=== PATIENT | female | born 1950 | race Caucasian/White ===

== ENCOUNTER 2017-04-07 00:39 | Inpatient (IN) | payer MEDICAID, MEDICARE, OTHER ==
[2017-04-07] VITALS (7 sets, daily range): BP systolic 122–160
[~2017-04-07] VITALS: Ht 152.4 cm; Wt 59.0 kg
[2017-04-07] MEDS ORDERED: methylPREDNISolone SOD SUCC/PF 62.5 MG/ML VIAL IVP ONE (01:00)
[2017-04-07] MEDS ORDERED: IPRATROPIUM/ALBUTEROL SULFATE 3 ML AMPUL.NEB INH ONE ×2 (01:00→02:45)
[2017-04-07] MEDS ORDERED: NACL 0.9% 1,000 ML IV ONE (01:00)
[2017-04-07] MEDS ORDERED: MAGNESIUM SULFATE 50 ML IV ONE (01:00)
[2017-04-07 02:14] LABS: BILIRUBIN,URINE NEGATIVE (NEGATIVE); BLOOD, URINE NEGATIVE (NEGATIVE); CLARITY/URINE CLEAR (CLEAR); COLOR,URINE YELLOW (YELLOW); GLUCOSE,URINE NEGATIVE (NEGATIVE); KETONES,URINE NEGATIVE (NEGATIVE); LEUKOCYTE ESTERASE ,URINE NEGATIVE (NEGATIVE); NITRITE, URINE NEGATIVE (NEGATIVE); PH,URINE 5.5 (5.0-8.0); PROTEIN URINE NEGATIVE (NEGATIVE); UROBILINOGEN,URINE 0.2 (0.2-1.0)
[2017-04-07 02:21] LABS: BASOPHILS # (AUTO) 0.1 K/uL (0.0-0.2); BASOPHILS % (AUTO) 0.8 % (0.0-2.0); EOSINOPHILS # (AUTO) 0.3 K/uL (0.0-0.4); HEMATOCRIT 33.8 % (36-48); HEMOGLOBIN 11.1 g/dL (12.0-16.0); LYMPHOCYTES # (AUTO) 2.6 K/uL (1.0-5.5); LYMPHOCYTES % (AUTO) 24.6 % (20.5-51.5); MEAN CORPUSCULAR HEMOGLOBIN 29 pg (27-31); MEAN CORPUSCULAR HGB CONC 33 % (32-36); MEAN CORPUSCULAR VOLUME 88 fL (79.0-98.0); NEUTROPHILS # (AUTO) 6.6 K/uL (1.8-7.7); NEUTROPHILS % (AUTO) 62.6 % (40.0-70.0); PLATELET COUNT (AUTO) 184 K/uL (130-430); RED BLOOD CELL COUNT(AUTO) 3.86 MIL/uL (4.2-6.2); RED CELL DISTRIBUTION WIDTH 14.8 % (9.0-15.0); WHITE BLOOD COUNT (AUTO) 10.6 K/uL (4.8-10.8)
[2017-04-07 02:24] LABS: CALCIUM 8.8 mg/dL (8.4-11.0); CREATININE 0.99 mg/dL (0.55-1.30); POTASSIUM 3.8 mmol/L (3.5-5.1)
[2017-04-07 02:29] LABS: ALBUMIN 3.4 g/dL (3.4-4.8); PROTHROMBIN TIME 10.5 SECS (9.5-12.5); TOTAL BILIRUBIN 0.3 mg/dL (0.0-1.0); TOTAL PROTEIN, SERUM 7.2 g/dL (6.4-8.3)
[2017-04-07] MEDS: IPRATROPIUM/ALBUTEROL SULFATE 3 ML AMPUL.NEB INH SCH ×6 (03:00→23:15)
[2017-04-07] MEDS ORDERED: cefTRIAXone 1 GM IVPB PREMIX 50 ML IV ONE (04:57)
[2017-04-07] MEDS: CEFTRIAXONE SOD 1 GM/ DEXTROSE,ISO 50 ML PREMIX IV SCH (05:46)
[2017-04-07] MEDS ORDERED: methylPREDNISolone SOD SUCC 40 MG/ML VIAL IVP SCH (06:00)
[2017-04-07] MEDS ORDERED: cefTRIAXone 1 GM VIAL IV SCH (09:00)
[2017-04-07] MEDS ORDERED: cefTRIAXone 1 GM VIAL IM SCH (09:00)
[2017-04-07] MEDS ORDERED: VITD2000 PO (12:22)
[2017-04-07] MEDS ORDERED: FURO-150 PO (12:22)
[2017-04-07] MEDS ORDERED: SPIRIVA INH (12:22)
[2017-04-07] MEDS ORDERED: ALBU0.63 NEB (12:22)
[2017-04-07] MEDS ORDERED: METO-442 PO (12:22)
[2017-04-07] MEDS ORDERED: TYC3 PO (12:22)
[2017-04-07] MEDS ORDERED: LORA-843 PO (12:22)
[2017-04-07] MEDS ORDERED: PRED20TA PO (12:22)
[2017-04-07] MEDS ORDERED: VITA1CAP PO (12:22)
[2017-04-07] MEDS ORDERED: SIMV20TA6 PO (12:22)
[2017-04-07] MEDS ORDERED: LIP10 PO (12:22)
[2017-04-07] MEDS ORDERED: ROFL500T PO (12:22)
[2017-04-07] MEDS ORDERED: METH4TAB17 PO (12:22)
[2017-04-07] MEDS ORDERED: MELO15TA13 PO (12:22)
[2017-04-07] MEDS ORDERED: MULT-1117 (12:22)
[2017-04-07] MEDS ORDERED: FLUT12AE3 IH (12:22)
[2017-04-07] MEDS ORDERED: CIPR-211 PO (12:22)
[2017-04-07] MEDS ORDERED: OXYB10TA4 PO (12:22)
[2017-04-07] MEDS ORDERED: CHOL500037 PO (12:22)
[2017-04-07] MEDS ORDERED: LOSA100T11 PO (12:22)
[2017-04-07] MEDS ORDERED: IRON1TAB93 PO (12:22)
[2017-04-07] MEDS ORDERED: LORA-259 PO (12:22)
[2017-04-07] MEDS ORDERED: ACETAMINOPHEN/CODEINE 300 MG-30 MG TABLET PO PRN (14:00)
[2017-04-07] MEDS ORDERED: MELOXICAM 7.5 MG TABLET PO PRN (14:00)
[2017-04-07] MEDS: methylPREDNISolone SOD SUCC 40 MG/ML VIAL IVP SCH ×2 (16:53→21:52)
[2017-04-07] MEDS: OXYBUTYNIN CHLORIDE 5 MG TABLET PO SCH (21:51)
[2017-04-08] MEDS: IPRATROPIUM/ALBUTEROL SULFATE 3 ML AMPUL.NEB INH SCH ×6 (02:20→23:30)
[2017-04-08 04:00] VITALS: BP_SYST 140
[2017-04-08] MEDS: CEFTRIAXONE SOD 1 GM/ DEXTROSE,ISO 50 ML PREMIX IV SCH (05:19)
[2017-04-08] MEDS: methylPREDNISolone SOD SUCC 40 MG/ML VIAL IVP SCH ×3 (05:19→21:11)
[2017-04-08] MEDS: IPRATROPIUM BROM 0.5 MG/2.5 ML VIAL.NEB (ATROVENT) INH SCH ×2 (07:00→11:00)
[2017-04-08 08:10] VITALS: BP_SYST 142
[2017-04-08] MEDS: METOPROLOL TARTRATE 50 MG TABLET PO SCH (08:24)
[2017-04-08] MEDS: CHOLECALCIFEROL (VITAMIN D3) 2,000 UNIT TABLET PO SCH (08:24)
[2017-04-08] MEDS: ATORVASTATIN 10 MG TABLET PO SCH (08:24)
[2017-04-08] MEDS: OXYBUTYNIN CHLORIDE 5 MG TABLET PO SCH ×2 (08:24→21:11)
[2017-04-08] MEDS: LOSARTAN POTASSIUM 50 MG TABLET (COZAAR) PO SCH (08:25)
[2017-04-08] MEDS: VITAMIN B COMPLEX 1 CAP/TAB PO SCH (08:40)
[2017-04-08] MEDS ORDERED: TIOTROPIUM BROMIDE 18 mcg/INHALATION (CAPSULE) INH SCH (09:00)
[2017-04-08] MEDS ORDERED: OXYBUTYNIN CHLORIDE 5 MG XL TAB PO SCH (09:00)
[2017-04-08 12:00] VITALS: BP_SYST 147
[2017-04-08] MEDS: IPRATROPIUM/ALBUTEROL SULFATE 3 ML AMPUL.NEB INH PRN ×2 (13:13→17:13)
[2017-04-08] MEDS ORDERED: ENOXAPARIN SODIUM 40 MG/0.4 ML SYRINGE SUBCUT ONE (14:00)
[2017-04-08 16:13] VITALS: BP_SYST 140
[2017-04-08 20:30] VITALS: BP_SYST 130
[2017-04-09] VITALS: BP_SYST 148
[2017-04-09] MEDS: IPRATROPIUM/ALBUTEROL SULFATE 3 ML AMPUL.NEB INH SCH ×6 (03:00→23:20)
[2017-04-09 04:54] VITALS: BP_SYST 157
[2017-04-09] MEDS: CEFTRIAXONE SOD 1 GM/ DEXTROSE,ISO 50 ML PREMIX IV SCH (05:26)
[2017-04-09] MEDS: methylPREDNISolone SOD SUCC 40 MG/ML VIAL IVP SCH ×3 (05:26→21:32)
[2017-04-09 08:04] VITALS: BP_SYST 149
[2017-04-09] MEDS: ATORVASTATIN 10 MG TABLET PO SCH (08:29)
[2017-04-09] MEDS: CHOLECALCIFEROL (VITAMIN D3) 2,000 UNIT TABLET PO SCH (08:29)
[2017-04-09] MEDS: ENOXAPARIN SODIUM 40 MG/0.4 ML SYRINGE SUBCUT SCH (08:29)
[2017-04-09] MEDS: OXYBUTYNIN CHLORIDE 5 MG TABLET PO SCH ×2 (08:29→21:32)
[2017-04-09] MEDS: METOPROLOL TARTRATE 50 MG TABLET PO SCH (08:30)
[2017-04-09] MEDS: LOSARTAN POTASSIUM 50 MG TABLET (COZAAR) PO SCH (08:30)
[2017-04-09] MEDS: VITAMIN B COMPLEX 1 CAP/TAB PO SCH (08:31)
[2017-04-09 12:32] VITALS: BP_SYST 142
[2017-04-09] MEDS: guaiFENesin ER 600 MG TAB PO SCH ×2 (13:30→21:32)
[2017-04-09 16:28] VITALS: BP_SYST 139
[2017-04-09] MEDS ORDERED: LORazepam 1 MG TABLET PO ONE (17:00)
[2017-04-09 20:00] VITALS: BP_SYST 130
[2017-04-09] MEDS: BUDESONIDE 0.5 MG/2 ML AMPUL.NEB INH SCH (20:00)
[2017-04-10] VITALS (8 sets, daily range): BP systolic 128–160
[2017-04-10] MEDS: IPRATROPIUM/ALBUTEROL SULFATE 3 ML AMPUL.NEB INH SCH ×5 (03:00→23:23)
[2017-04-10] MEDS: CEFTRIAXONE SOD 1 GM/ DEXTROSE,ISO 50 ML PREMIX IV SCH (04:39)
[2017-04-10] MEDS: methylPREDNISolone SOD SUCC 40 MG/ML VIAL IVP SCH ×3 (05:11→20:43)
[2017-04-10] MEDS: BUDESONIDE 0.5 MG/2 ML AMPUL.NEB INH SCH ×2 (07:30→19:07)
[2017-04-10 08:15] LABS: CALCIUM 8.3 mg/dL (8.4-11.0); CHLORIDE 106 mmol/L (98-107); CREATININE 0.75 mg/dL (0.55-1.30); GLUCOSE 114 mg/dL (70-99); POTASSIUM 4.3 mmol/L (3.5-5.1); SODIUM SERUM 138 mmol/L (136-145); UREA NITROGEN, BLOOD 34 mg/dL (8-21)
[2017-04-10 08:17] LABS: ANION GAP < 3 (5-15); BASOPHILS # (AUTO) 0.1 K/uL (0.0-0.2); HEMATOCRIT 37.3 % (36-48); HEMOGLOBIN 12.1 g/dL (12.0-16.0); LYMPHOCYTES # (AUTO) 0.8 K/uL (1.0-5.5); LYMPHOCYTES % (AUTO) 11.4 % (20.5-51.5); MEAN CORPUSCULAR HEMOGLOBIN 28 pg (27-31); MEAN CORPUSCULAR HGB CONC 32 % (32-36); MEAN CORPUSCULAR VOLUME 88 fL (79.0-98.0); MONOCYTES # (AUTO) 0.2 K/uL (0.0-1.0); MONOCYTES % (AUTO) 3.4 % (1.7-9.3); NEUTROPHILS # (AUTO) 5.5 K/uL (1.8-7.7); NEUTROPHILS % (AUTO) 84.2 % (40.0-70.0); PLATELET COUNT (AUTO) 162 K/uL (130-430); RED BLOOD CELL COUNT(AUTO) 4.24 MIL/uL (4.2-6.2); RED CELL DISTRIBUTION WIDTH 14.3 % (9.0-15.0); WHITE BLOOD COUNT (AUTO) 6.6 K/uL (4.8-10.8)
[2017-04-10] MEDS: LORazepam 1 MG TABLET PO SCH (09:37)
[2017-04-10] MEDS: LOSARTAN POTASSIUM 50 MG TABLET (COZAAR) PO SCH (09:38)
[2017-04-10] MEDS: OXYBUTYNIN CHLORIDE 5 MG TABLET PO SCH ×2 (09:39→20:43)
[2017-04-10] MEDS: ATORVASTATIN 10 MG TABLET PO SCH (09:39)
[2017-04-10] MEDS: METOPROLOL TARTRATE 50 MG TABLET PO SCH (09:41)
[2017-04-10] MEDS: guaiFENesin ER 600 MG TAB PO SCH ×2 (09:42→20:43)
[2017-04-10] MEDS: CHOLECALCIFEROL (VITAMIN D3) 2,000 UNIT TABLET PO SCH (09:42)
[2017-04-10] MEDS: VITAMIN B COMPLEX 1 CAP/TAB PO SCH (09:43)
[2017-04-10] MEDS: ENOXAPARIN SODIUM 40 MG/0.4 ML SYRINGE SUBCUT SCH (09:58)
[2017-04-10] MEDS: IPRATROPIUM/ALBUTEROL SULFATE 3 ML AMPUL.NEB INH PRN (13:34)
[2017-04-10] MEDS ORDERED: SODIUM CHLORIDE 0.65% NASAL SPRAY NS PRN (16:15)
[2017-04-10] MEDS ORDERED: IPRATROPIUM/ALBUTEROL SULFATE 3 ML AMPUL.NEB ONE (18:50)
[2017-04-11] VITALS (7 sets, daily range): BP systolic 134–154
[2017-04-11] MEDS: IPRATROPIUM/ALBUTEROL SULFATE 3 ML AMPUL.NEB INH SCH ×5 (03:00→20:01)
[2017-04-11] MEDS: CEFTRIAXONE SOD 1 GM/ DEXTROSE,ISO 50 ML PREMIX IV SCH (04:16)
[2017-04-11] MEDS: IPRATROPIUM BROM 0.5 MG/2.5 ML VIAL.NEB (ATROVENT) INH SCH ×3 (07:00→15:00)
[2017-04-11] MEDS: BUDESONIDE 0.5 MG/2 ML AMPUL.NEB INH SCH ×2 (08:17→20:02)
[2017-04-11] MEDS: ENOXAPARIN SODIUM 40 MG/0.4 ML SYRINGE SUBCUT SCH (09:45)
[2017-04-11] MEDS: CHOLECALCIFEROL (VITAMIN D3) 2,000 UNIT TABLET PO SCH (09:46)
[2017-04-11] MEDS: METOPROLOL TARTRATE 50 MG TABLET PO SCH (09:46)
[2017-04-11] MEDS: ATORVASTATIN 10 MG TABLET PO SCH (09:47)
[2017-04-11] MEDS: VITAMIN B COMPLEX 1 CAP/TAB PO SCH (09:47)
[2017-04-11] MEDS: LOSARTAN POTASSIUM 50 MG TABLET (COZAAR) PO SCH (09:48)
[2017-04-11] MEDS: methylPREDNISolone SOD SUCC 40 MG/ML VIAL IVP SCH (09:48)
[2017-04-11] MEDS: guaiFENesin ER 600 MG TAB PO SCH ×2 (09:49→21:14)
[2017-04-11] MEDS: OXYBUTYNIN CHLORIDE 5 MG TABLET PO SCH ×2 (09:49→21:14)
[2017-04-11] MEDS: LORazepam 1 MG TABLET PO SCH (09:49)
[2017-04-11] MEDS: IPRATROPIUM/ALBUTEROL SULFATE 3 ML AMPUL.NEB INH PRN ×2 (12:37→18:06)
[2017-04-11] MEDS ORDERED: PREDNISONE 20 MG TABLET PO SCH (21:00)
== END 2017-04-11 21:50 | DRG 189 ==
LOC: SED 00:39 → SMU 03:10
PROVIDERS: ADMIT Family Medicine; ATTEND Family Medicine
DX: J96.20 Acute and chronic respiratory failure, unspecified whether with hypoxia or hypercapnia (principal); J44.1 Chronic obstructive pulmonary disease with (acute) exacerbation; E78.5 Hyperlipidemia, unspecified; I11.9 Hypertensive heart disease without heart failure; E11.9 Type 2 diabetes mellitus without complications; F41.8 Other specified anxiety disorders; Z87.891 Personal history of nicotine dependence; Z99.81 Dependence on supplemental oxygen; Z90.710 Acquired absence of both cervix and uterus; Z79.899 Other long term (current) drug therapy
CPT/HCPCS: 36415; 71010; 80048; 80053; 81003; 83605; 84484; 85025; 85610-TC; 85730-TC; 87040-TC; 87086; 93005; 94640; 94760; 96365; 96366; 96375; 97116-GP; 97530-GP; 99285; J0696; J1030; J1650; J2930; J3475; J7030; J7050; J7512

== ENCOUNTER 2017-06-03 12:01 | Inpatient (IN) | payer OTHER ==
[~2017-06-03] VITALS: Ht 149.9 cm; Wt 60.8 kg
[2017-06-03 12:01] VITALS: BP_SYST 169
[~2017-06-03 12:01] MED LIST: ALBU0.63 NEB; CHOL500037 PO; FLUT12AE3 IH; IRON1TAB93 PO; LIP10 PO; LORA-259 PO; LORA-843 PO; LOSA100T11 PO; METO-442 PO; MULT-1117; OXYB10TA4 PO; PRED20TA PO; ROFL500T PO; SIMV20TA6 PO; SPIRIVA INH; TYC3 PO; VITA1CAP PO; VITD2000 PO
--- NOTE | 2017-06-03 12:01 | NUR ---
BROUGHT IN BY [facility], PLACED IN BED #2 AND TRIAGED. REPORT GIVEN TO LORI
--- NOTE | 2017-06-03 12:04 | NUR ---
Pt bib LACF for severe resp distress. Pt placed on Cpap prior to ED arrival .Pt h/o HTN,hyperlipidemia,COPD. Pt to be placed on Bipap. Will monitor.
--- NOTE | 2017-06-03 12:07 | NUR ---
ER Dr. Fields at bedside examining patient.
--- NOTE | 2017-06-03 12:08 | NUR ---
Rt at bedside for Bipap placement.
[2017-06-03] MEDS ORDERED: LEVOFLOXACIN 500 MG/D5W 100 ML IV ONE (12:15)
[2017-06-03] MEDS ORDERED: methylPREDNISolone SOD SUCC/PF 62.5 MG/ML VIAL IVP ONE (12:15)
[2017-06-03] MEDS ORDERED: ALBUTEROL SULFATE 0.083% 2.5 MG/3 ML VIAL.NEB INH ONE (12:15)
[2017-06-03 12:39] LABS: EOSINOPHILS # (AUTO) 0.1 K/uL (0.0-0.4); EOSINOPHILS % (AUTO) 0.9 % (0.0-4.0); HEMATOCRIT 49.9 % (36-48); HEMOGLOBIN 16.3 g/dL (12.0-16.0); LYMPHOCYTES # (AUTO) 2.1 K/uL (1.0-5.5); LYMPHOCYTES % (AUTO) 15.8 % (20.5-51.5); MEAN CORPUSCULAR HEMOGLOBIN 28 pg (27-31); MEAN CORPUSCULAR HGB CONC 33 % (32-36); MEAN CORPUSCULAR VOLUME 87 fL (79.0-98.0); MONOCYTES # (AUTO) 0.8 K/uL (0.0-1.0); MONOCYTES % (AUTO) 5.7 % (1.7-9.3); PLATELET COUNT (AUTO) 174 K/uL (130-430); RED BLOOD CELL COUNT(AUTO) 5.73 MIL/uL (4.2-6.2); RED CELL DISTRIBUTION WIDTH 18.5 % (9.0-15.0); WHITE BLOOD COUNT (AUTO) 13.4 K/uL (4.8-10.8)
[2017-06-03 12:41] LABS: NEUTROPHILS # (AUTO) 10.4 K/uL (1.8-7.7); NEUTROPHILS % (AUTO) 77.6 % (40.0-70.0)
[2017-06-03 12:44] LABS: CALCIUM 8.8 mg/dL (8.4-11.0); CREATININE 0.72 mg/dL (0.55-1.30); POTASSIUM 3.9 mmol/L (3.5-5.1); PROTHROMBIN TIME 10.6 SECS (9.5-12.5)
[2017-06-03 12:48] LABS: ALBUMIN 3.5 g/dL (3.4-4.8); TOTAL BILIRUBIN 1.1 mg/dL (0.0-1.0)
[2017-06-03] MEDS ORDERED: NACL 0.9% 1,000 ML IV ONE (13:00)
[2017-06-03] MEDS ORDERED: MAGNESIUM SULFATE 50 ML IV ONE ×2 (13:00)
--- NOTE | 2017-06-03 13:05 | NUR ---
Bipap removed. Pt's O2 maintaining at 92-93%. Continuing to monitor.
[2017-06-03 13:10] LABS: BILIRUBIN,URINE NEGATIVE (NEGATIVE); CLARITY/URINE CLEAR (CLEAR); COLOR,URINE YELLOW (YELLOW); GLUCOSE,URINE NEGATIVE (NEGATIVE); KETONES,URINE 1+ (NEGATIVE); LEUKOCYTE ESTERASE ,URINE TRACE (NEGATIVE); NITRITE, URINE POSITIVE (NEGATIVE); PROTEIN URINE 2+ (NEGATIVE); UROBILINOGEN,URINE 0.2 (0.2-1.0)
[2017-06-03 13:17] LABS: BLOOD, URINE TRACE (NEGATIVE)
--- NOTE | 2017-06-03 13:20 | NUR ---
Pt medicated w/ MAG and NS.
[2017-06-03 13:33] LABS: BACTERIA,URINE MANY /HPF (None Seen)
--- NOTE | 2017-06-03 14:06 | NUR ---
Pt tolerating medication well.
--- NOTE | 2017-06-03 14:39 | NUR ---
Patient will be admitted to care of . Admitted to Telemetry unit. Will go to room 120. Belongings list completed. Summary report printed. Report will be given at bedside.
[2017-06-03 15:00] VITALS: BP_SYST 180
[2017-06-03] MEDS: IPRATROPIUM BROM 0.5 MG/2.5 ML VIAL.NEB (ATROVENT) INH SCH ×3 (15:00→23:00)
--- NOTE | 2017-06-03 15:00 | NUR ---
Admission Note Received patient from ER/LORI /RN with diagnosis of COPD. Initial Plan of Care discussed-patient verbalized understanding. Family at bedside. Oriented to room, call light, pain management and safety.
[2017-06-03] MEDS ORDERED: ACETAMINOPHEN/CODEINE 300 MG-30 MG TABLET PO PRN (15:45)
[2017-06-03] MEDS: ALBUTEROL SULFATE 0.083% 2.5 MG/3 ML VIAL.NEB INH SCH ×3 (15:45→23:00)
[2017-06-03 16:46] VITALS: BP_SYST 176
[2017-06-03 16:49] VITALS: BP_SYST 180
[2017-06-03] MEDS: ATORVASTATIN 10 MG TABLET PO SCH (18:00)
[2017-06-03] MEDS: OXYBUTYNIN CHLORIDE 5 MG TABLET PO SCH (18:09)
[2017-06-03] MEDS: methylPREDNISolone SOD SUCC/PF 62.5 MG/ML VIAL IVP SCH ×2 (18:09→21:49)
--- NOTE | 2017-06-03 18:15 | NUR ---
FAMILY CAME FOR VISIT. HER SON EVER REDDY [phone].
[2017-06-03] MEDS: METOPROLOL TARTRATE 50 MG TABLET PO SCH (18:44)
[2017-06-03] MEDS: LOSARTAN POTASSIUM 50 MG TABLET (COZAAR) PO SCH (18:58)
[2017-06-03] MEDS ORDERED: LOSARTAN POTASSIUM 50 MG TABLET (COZAAR) PO ONE (19:00)
--- NOTE | 2017-06-03 19:15 | NUR ---
CLOSING : PT WAS STILL HAVING RESP DISTRESS, GIVEN ONE DOSE OF BP MEDS 181/88, AND CALLED FOR RT TREATMENT. PT FELT BETTER A LITTLE BIT, ENDORSED TO BLENDER RN/KHURRAM FOR CONTINUE CARE.
--- NOTE | 2017-06-03 19:47 | NUR ---
INITIAL NOTE Patient resting on the bed. No acute distress. Respiration even and unlabored. On O2 2L/min via NC. Skin warm and dry to touch. SL intact to LFA and RFA, no redness, no swelling. Discussed the safety issue, use call light when need help, and plan of care, verbally understanding. Safety measure maintained. Bed in low position, side rails up, bed alarm on. Call light within reached. Will continue to monitor.
[2017-06-03 20:00] VITALS: BP_SYST 168
[2017-06-03 21:00] VITALS: BP_SYST 139
[2017-06-03] MEDS ORDERED: SIMVASTATIN 20 MG TABLET PO SCH (21:00)
--- NOTE | 2017-06-03 21:25 | NUR ---
ROUND Patient resting on the bed. No acute distress. Respiration even and unlabored. On O2 2L/min via NC. Safety measure maintained. Bed in low position, side rails up, bed alarm on. Call light within reached. Continue to monitor.
--- NOTE | 2017-06-03 23:42 | NUR ---
ROUND Patient resting on the bed with eyes closed. No acute distress. Respiration even and unlabored. On O2 2L/min via NC. Safety measure maintained. Bed in low position, side rails up, bed alarm on. Call light within reached. Continue to monitor.
[2017-06-04] VITALS (7 sets, daily range): BP systolic 146–160
--- NOTE | 2017-06-04 01:50 | NUR ---
ROUND Patient resting on the bed with eyes closed. No acute distress. Respiration even and unlabored. On O2 2L/min via NC. Safety measure maintained. Call light within reached. Bed in low position, side rails up, bed alarm on. Continue to monitor.
--- NOTE | 2017-06-04 04:44 | NUR ---
CONSULT CONSULT CALLED FOR DR. SHERIF CASTELLANO I SPOKE WITH HENRY HUGHES REQUESTING: DR. ADLER REASON: COPD RESPIRATORY FAILURE
--- NOTE | 2017-06-04 04:55 | NUR ---
ROUND Patient resting on the bed with eyes closed. No acute distress. On O2 2L/min via NC. Safety measure maintained. Call light within reached. Bed in low position, side rails up, bed alarm on. Continue to monitor.
[2017-06-04] MEDS: methylPREDNISolone SOD SUCC/PF 62.5 MG/ML VIAL IVP SCH (06:38)
--- NOTE | 2017-06-04 06:55 | NUR ---
CLOSING NOTE Patient resting on the bed. No acute distress. Respiration even and unlabored. On O2 2L/min via NC. Skin warm and dry to touch. SL intact to LFA and RFA, no redness, no swelling. All needs met.Hourly rounding during shift. Safety measure maintained. Bed in low position, side rails up, bed alarm on. Call light within reached. Will endorse to morning shift nurse.
[2017-06-04] MEDS: IPRATROPIUM BROM 0.5 MG/2.5 ML VIAL.NEB (ATROVENT) INH SCH ×4 (07:15→18:37)
[2017-06-04] MEDS: ALBUTEROL SULFATE 0.083% 2.5 MG/3 ML VIAL.NEB INH SCH ×4 (07:15→18:37)
--- NOTE | 2017-06-04 07:15 | NUR ---
INITIAL NOTE: RECEIVED PATIENT FROM OCEAN CLAM BOAT CAPTAIN RN. PATIENT A & O X 2, RECEIVING BREATHING TX FROM RT. RESTING COMFORTABLY. PATIENT HAS TWO IVS, LT AND RT FOREARM, SL AT THIS TIME. PT IS INCONTINENT OF B & B. SR ON TELE MONITOR. ECCHYMOSIS ON LT AND RT HANDS AND ARMS NOTED AND SCAB TO FOREHEAD NOTED FROM FALL AT HOME. FALL PRECAUTIONS IN PLACE. CALL MARCUS WITHIN PATIENT'S REACH. BED ALARM IN USE. BED IN LOW POSITION. SIDE RAILS UP X 2. WILL CONTINUE TO MONITOR.
[2017-06-04] MEDS: ATORVASTATIN 10 MG TABLET PO SCH (08:32)
[2017-06-04] MEDS: OXYBUTYNIN CHLORIDE 5 MG TABLET PO SCH ×2 (08:34→21:02)
[2017-06-04] MEDS: LOSARTAN POTASSIUM 50 MG TABLET (COZAAR) PO SCH (08:37)
[2017-06-04] MEDS: CHOLECALCIFEROL (VITAMIN D3) 2,000 UNIT TABLET PO SCH (08:38)
[2017-06-04] MEDS: ENOXAPARIN SODIUM 40 MG/0.4 ML SYRINGE SUBCUT SCH (08:39)
[2017-06-04] MEDS: LEVOFLOXACIN 500 MG/D5W 100 ML IV SCH (08:39)
[2017-06-04] MEDS: METOPROLOL TARTRATE 50 MG TABLET PO SCH (08:43)
--- NOTE | 2017-06-04 08:47 | NUR ---
MEDICATION PATIENT RECEIVED SCHEDULED MEDICATIONS. TOLERATED WELL. LOVENOX GIVEN IN LT UPPER ARM, PER PT REQUEST. NO OTHER NEEDS AT THIS TIME. WILL CONTINUE TO MONITOR. FALL PRECAUTIONS IN PLACE.
[2017-06-04] MEDS ORDERED: ATORVASTATIN 10 MG TABLET PO SCH (09:00)
[2017-06-04] MEDS ORDERED: OXYBUTYNIN CHLORIDE 5 MG XL TAB PO SCH (09:00)
[2017-06-04] MEDS ORDERED: METOPROLOL TARTRATE 50 MG TABLET PO SCH (09:00)
--- NOTE | 2017-06-04 09:58 | NUR ---
Nutrition Update Fer Scale 14 noted. Pt admitted for COPD, chronic respiratory. Diet: regular BMI: 27.1 kg/m2 RD to follow per nutrition care standards.
--- NOTE | 2017-06-04 11:00 | NUR ---
RN ROUNDS: PATIENT RESTING IN BED. NO OTHER NEEDS AT THIS TIME. WILL CONTINUE TO MONITOR. FALL PRECAUTIONS IN PLACE.
--- NOTE | 2017-06-04 12:35 | NUR ---
RN ROUNDS: PATIENT MEAL TRAY SET UP. EATING LUNCH. RESTING COMFORTABLY ON 2L 02 VIA N/C. CALL MARCUS WITHIN REACH. FALL PRECAUTIONS IN PLACE. BED ALARM ON. BED IN LOW POSITION. SIDE RAILS UP X 2. WILL CONTINUE TO MONITOR.
--- NOTE | 2017-06-04 13:40 | NUR ---
RN ROUND PATIENT STILL EATING LUNCH. ON 2L O2 VIA N/C. SR ON TELE MONITOR. RESTING COMFORTABLY IN BED. FALL PRECAUTIONS IN EFFECT. BED IN LOW POSITION. CALL MARCUS WITHIN PATIENT REACH. BED ALARM ON. SIDE RAILS UP X 2. WILL CONTINUE TO MONITOR.
--- NOTE | 2017-06-04 15:52 | NUR ---
RN ROUND PATIENT PERIPHERAL IV LT FOREARM INFILTRATED. DC'D. APPLIED GAUZE AND PAPER TAPE. PT TOLERATED WELL. WILL CONTINUE TO MONITOR. FALL PRECAUTIONS IN PLACE. CALL MARCUS WITHIN PATIENT REACH. BED IN LOW POSITION. BED ALARM ON. SIDE RAILS UP X 2.
--- NOTE | 2017-06-04 18:00 | NUR ---
RN ROUNDS PATIENT REPOSITIONED. DINNER TRAY SET UP. ENCOURAGED PT TO EAT DINNER. PT SL, RT F/A. LT F/A ELEVATED DUE TO INFILTRATION. PT DENIES PAIN OR DISCOMFORT. FALL PRECAUTIONS IN EFFECT. CALL MARCUS WITHIN REACH. BED IN LOW POSITION. BED ALARM ON. SIDE RAILS UP X 2. WILL CONTINUE TO MONITOR.
--- NOTE | 2017-06-04 18:43 | NUR ---
CLOSING NOTE PATIENT C/O OF SLIGHT SOB AFTER DINNER, TACHYPNIC WITH SHALLOW BREATHS. ENCOURAGED PT TO TAKE DEEP BREATHS WITH PURSE-LIPPED BREATHING. PT CALM, NO C/O DISCOMFORT. O2 SAT ON 2L N/C 92-93%, RT PAGED FOR PRN BREATHING TX. RT AT BEDSIDE ADMINISTERING BREATHING TX AT THIS TIME. PT STABLE. FALL PRECAUTIONS IN PLACE. BED IN LOW POSITION. CALL MARCUS WITHIN REACH. BED ALARM ON. WILL ENDORSE CARE TO SURGICAL BRACE MAKER RN.
--- NOTE | 2017-06-04 20:00 | NUR ---
Initial PM Note Pt was received lying in bed fully awake and alert. Pt is oriented to her name and place. Speech is clear and pt is able to make her needs known. No c/o pain or discomfort and no acute distress noted. Pt is afebrile and O2 sat is 93% on O2 at 2L/min per NC. Skin is warm and dry to touch. No signs or symptoms of hypoglycemia or hyperglycemia noted. Saline lock is patent in RFA without any signs of infiltration noted at the site. Fall and safety precautions are in place. Pt was instructed to call for assistance as needed and pt verbalized understanding. Three side rails are up, call light is with pt and bed alarm is on. Will continue to monitor pt.
[2017-06-04] MEDS: methylPREDNISolone SOD SUCC 40 MG/ML VIAL IVP SCH (21:02)
--- NOTE | 2017-06-04 22:00 | NUR ---
Rounds Pt is resting comfortably in bed. No c/o pain or discomfort. Pt was offered HS snacks, but she declined. Saline lock is intact in LFA and without any signs of infiltration. Call light is with pt and bed alarm is on. Will continue to monitor pt.
[2017-06-04] MEDS ORDERED: FLU VACC QS 2017-18(36MOS+)/PF 0.5 ML/SYR SYRINGE I.M. PRN (23:45)
[2017-06-05] VITALS (9 sets, daily range): BP systolic 148–208
--- NOTE | 2017-06-05 | NUR ---
Rounds Pt is sleeping without any respiratory distress noted. Fall and safety precautions are in place. Call light is with pt and bed alarm is on.
[2017-06-05] MEDS: ALBUTEROL SULFATE 0.083% 2.5 MG/3 ML VIAL.NEB INH SCH ×7 (00:05→23:30)
[2017-06-05] MEDS: IPRATROPIUM BROM 0.5 MG/2.5 ML VIAL.NEB (ATROVENT) INH SCH ×7 (00:05→23:29)
--- NOTE | 2017-06-05 02:00 | NUR ---
Rounds Pt is sleeping comfortably in bed without any distress noted. Call light is with pt and bed alarm is on.
--- NOTE | 2017-06-05 03:55 | NUR ---
Rounds Pt is awake and appears very anxious. Pt is also confused and stated her son is "going up the hill." Pt pointed at the TV and stated that is the hill. Pt was reoriented to time and place. Pt denies pain or discomfort at this time. Call light is with pt and bed alarm is on.
[2017-06-05] MEDS: ALBUTEROL SULFATE 0.083% 2.5 MG/3 ML VIAL.NEB INH PRN (05:29)
[2017-06-05] MEDS: IPRATROPIUM BROM 0.5 MG/2.5 ML VIAL.NEB (ATROVENT) INH PRN (05:29)
--- NOTE | 2017-06-05 06:20 | NUR ---
's Phone Call Per Economics Professor Marci, pt had called the [employer]'s Department stating that she is being held here at [facility] against her will. Upon getting into pt's room, pt stated she wants to go home. Pt was able to state she is at [facility]. Pt was advised she will be discharged home when she is well enough for discharge. Pt was also informed her doctor has not written discharge orders yet.
--- NOTE | 2017-06-05 06:30 | NUR ---
Phone Call to Family Pt stated she is not allowed to make phone calls to her daughter Yennifer. Pt stated she tried multiple times to reach Yennifer on the phone, but was unable because she is not allowed to do so anymore. RN called Yennifer at and left a voice mail message for Yennifer to call back [facility] at . Pt was informed.
--- NOTE | 2017-06-05 06:57 | NUR ---
Received call from [facility] Deputy Ramirez regarding patient Sandra. stated that they received 911 call from patient stating that she wanted to go home but she was being allowed to leave. I went immediately to patient room with Primary RN and Charge Nurse. Found patient lying quietly in bed, appearing calm and comfortable. Neat, storey appearance. Noted small 1cm healing wound to forehead with surrounding ecchymotic area in healing stage. Upon questioning, she was oriented to person and to place, but not aware of her physical limitations. She did not ask staff about going home, but RN states that earlier the patient was talking about her son, stating that he was climbing up the hill. When asked where the hill was, she pointed to the room corner. We spoke with the patient, and explained that she needed to stay here until she could walk by her self and take care of herself. I asked her how she planned to get home. She said she would call her son. When asked why she didn't call her son, instead of the police, she stated she called 911. Pt appeared calm and was not attempting to get out of bed. I returned the call to Deputy Ramirez and reported that the patient was in no danger, distress and was not being held against her will, but was confused to her circumstances. was satisfied that further investigation was not needed.
--- NOTE | 2017-06-05 06:59 | NUR ---
Closing Note Pt is resting comfortably in bed. No c/o pain or discomfort. All pt's needs were attended to. No fall or injury noted this shift. Call light is with pt and bed alarm is on. Will endorse to day shift nurse.
--- NOTE | 2017-06-05 07:10 | NUR ---
INITIAL NOTE RECEIVED PATIENT FROM LABORER AMMUNITION ASSEMBLY RN IN STABLE CONDITION. PATIENT A & O X 2, CALM AND COOPERATIVE. SR ON TELE MONITOR. ON 2L O2 VIA N/C. SL RT F/A. SIDE RAILS UP X 2. CALL MARCUS WITHIN REACH. BED IN LOW POSITION. BED ALARM ON. WILL CONTINUE TO MONITOR.
[2017-06-05] MEDS: CHOLECALCIFEROL (VITAMIN D3) 2,000 UNIT TABLET PO SCH (08:15)
[2017-06-05] MEDS: LOSARTAN POTASSIUM 50 MG TABLET (COZAAR) PO SCH (08:15)
[2017-06-05] MEDS: OXYBUTYNIN CHLORIDE 5 MG TABLET PO SCH ×2 (08:15→20:18)
[2017-06-05] MEDS: methylPREDNISolone SOD SUCC 40 MG/ML VIAL IVP SCH ×2 (08:16→22:11)
[2017-06-05] MEDS: ATORVASTATIN 10 MG TABLET PO SCH (08:16)
[2017-06-05] MEDS: ENOXAPARIN SODIUM 40 MG/0.4 ML SYRINGE SUBCUT SCH (08:16)
[2017-06-05] MEDS: METOPROLOL TARTRATE 50 MG TABLET PO SCH (08:17)
[2017-06-05] MEDS: LEVOFLOXACIN 500 MG/D5W 100 ML IV SCH (08:17)
--- NOTE | 2017-06-05 08:35 | NUR ---
MEDICATION NOTE PATIENT RECEIVED A.M. MEDICATIONS, ALL PO MEDS, BP 164/45 LT F/A. BP MED GIVEN WILL REASSESS. ALSO RECEIVED IVPB ABX AND IVP MED. TOLERATED WELL. EATING BREAKFAST. FALL PRECAUTIONS IN PLACE. CALL MARCUS WITHIN REACH.
--- NOTE | 2017-06-05 10:14 | NUR ---
RN ROUNDS PATIENT IN STABLE CONDITION. PT TO SEE PATIENT FOR PT EVAL, PER MD ORDER. FALL PRECAUTIONS IN EFFECT. WILL CONTINUE TO MONITOR.
--- NOTE | 2017-06-05 12:00 | NUR ---
RN ROUNDS PATIENT SITTING UP IN CHAIR, PATIENT TOLERATING WELL, NO SIGNS OF DISTRESS NOTED, BREATHING IS EVEN AND UNLABORED, CALL MARCUS WITHIN REACH OF PATIENT'S HAND, WILL CONTINUE TO MONITOR.
--- NOTE | 2017-06-05 12:37 | NUR ---
Dietitian Recommendations * Recommend regular diet, Boost Plus BID (oral supplement provides an additional 720 kcal/day and 28 gm protein/day) LP, RD Please refer to Nutrition Assessment for details.
--- NOTE | 2017-06-05 14:39 | NUR ---
RN ROUNDS PATIENT RESTING IN BED WITH EYES CLOSED, NO SIGNS OF DISTRESS NOTED, BREATHING IS EVEN AND UNLABORED, SIDE RAILS UP, BED ALARM ON, FALL PRECAUTIONS IN PLACE, WILL CONTINUE TO MONITOR.
--- NOTE | 2017-06-05 16:20 | NUR ---
RN ROUNDS PATIENT SITTING UP IN BED. RESTING COMFORTABLY. ON O2 2L VIA N/C. FALL PRECAUTIONS IN PLACED. CALL MARCUS WITHIN REACH. OFF TELE NOW. WILL CONTINUE TO MONITOR.
--- NOTE | 2017-06-05 18:35 | NUR ---
RN ROUNDS PATIENT AGITATED, CONFUSED, CRYING. STATING HAVING STOMACH PAIN, 02/22. BP LT F/A 208/107. WILL GIVE TYLENOL #3 AND PAGE .
--- NOTE | 2017-06-05 18:39 | NUR ---
page paged doctor vasquez for orders s/w emelia
--- NOTE | 2017-06-05 18:57 | NUR ---
RN NOTE PATIENT GIVEN TYLENOL #3 PO. CALM, NOT CRYING ANYMORE. PURSE-LIPPED BREATHING ENCOURAGED. BP 163/90. WILL CONTINUE TO MONITOR. FALL PRECAUTIONS IN PLACE.
[2017-06-05] MEDS: cloNIDine HCL 0.1 MG TABLET PO PRN (19:13)
--- NOTE | 2017-06-05 19:20 | NUR ---
CLOSING NOTE RECEIVED ORDER FOR CLONIDINE 0.1MG PO. MEDICATION GIVEN. PATIENT CARE ENDORSED TO LATHE SANDER RN.
--- NOTE | 2017-06-05 20:00 | NUR ---
NOTES SEEN PT IN BED, IN STABLE CONDITION. NO APPARENT DISTRESS NOTED. A & O X 2, CALM AND COOPERATIVE. BP 179/87, HR 69. OUTGOING NURSE ALREADY GAVE PRN CLONIDINE MEDICATION. WILL RECHECK BP. LEFT FOREHEAD SCAB AND BRUISE NOTED. RAHUL ARM, HANDS, RAHUL KNEE, RAHUL LOWER EXT AND RT HIP BRUISES NOTED. ON O2 AT 2L VIA N/C. IV SALINE LOCK TO THE LEFT FOREARM GAUGE 22, PATENT. SIDE RAILS UP X 2. T DENIES ANY PAIN AT THIS TIME. BED LOCKED AND IN LOW POSITION, SIDE RAILS UP X3. CALL MARCUS WITHIN REACH. BED ALARM ON. WILL CONTINUE TO MONITOR.
--- NOTE | 2017-06-05 20:23 | NUR ---
NOTES; SCHEDULED PO MEDICATION ADMINISTERED. PT TOLERATED MEDICATION WELL.
--- NOTE | 2017-06-05 21:00 | NUR ---
NOTES; RECHECKED BP 155/70, HR 65. WILL CONTINUE TO MONITOR.
--- NOTE | 2017-06-05 21:50 | NUR ---
NOTES; INCONTINENT OF URINE. TOTAL BED BATH GIVEN, LINEN CHANGED. REPOSITIONED FOR COMFORT AND SKIN BREAKDOWN. CALL LIGHT WITHIN REACH.
--- NOTE | 2017-06-05 23:00 | NUR ---
NOTES; APPEARED TO BE SLEEPING, EYES CLOSED. RESPIRATION EVEN AND UNLABORED. EASILY AROUSED. SAFETY MEASURES IN PROGRESS.
--- NOTE | 2017-06-06 02:00 | NUR ---
NOTES; APPEARED TO BE SLEEPING, EYES CLOSED. RESPIRATION EVEN AND UNLABORED. EASILY AROUSED. SAFETY MEASURES IN PROGRESS.
[2017-06-06 03:45] VITALS: BP_SYST 164
[2017-06-06] MEDS: cloNIDine HCL 0.1 MG TABLET PO PRN ×2 (04:36→18:28)
--- NOTE | 2017-06-06 04:37 | NUR ---
NOTES; BP FOUND TO BE 164/89, CLONIDINE 0.1MG PO ADMINISTERED.
--- NOTE | 2017-06-06 05:40 | NUR ---
NOTES; RECHECKED BP 157/71, HR 64. WILL CONTINUE TO MONITOR.
--- NOTE | 2017-06-06 06:34 | NUR ---
NOTES; RESTING QUIETLY, EASILY AROUSED. NO ACUTE DISTRESS NOTED. UNABLE TO GIVE FLU VACCINE DUE TO PT CONFUSION. ALL NEEDS ATTENDED. SAFETY MEASURES IN PROGRESS.
[2017-06-06] MEDS: IPRATROPIUM BROM 0.5 MG/2.5 ML VIAL.NEB (ATROVENT) INH SCH ×4 (07:18→19:32)
[2017-06-06] MEDS: ALBUTEROL SULFATE 0.083% 2.5 MG/3 ML VIAL.NEB INH SCH ×4 (07:18→19:32)
--- NOTE | 2017-06-06 08:00 | NUR ---
AM Initial Notes Pt aaox2 with confusion. No complaints of pain or discomfort. Pt is congested with O2 via nasal canula @ 2L in place. No sob, difficulty breathing or distress noted. IV to left forearm #22g saline locked patent and flushing. Bruises noted to forehead, bilateral arms, knees and right hip. Incontinent care done. Fall and safety precautions enforced with bed alarm armed, ID band on, 3 rails up and close to nurse's station. Repositioned and kept comfortable. Encouraged to call for assistance. Call light within reach. Will monitor.
[2017-06-06 08:21] VITALS: BP_SYST 173
[2017-06-06] MEDS: CHOLECALCIFEROL (VITAMIN D3) 2,000 UNIT TABLET PO SCH (09:12)
[2017-06-06] MEDS: OXYBUTYNIN CHLORIDE 5 MG TABLET PO SCH (09:12)
[2017-06-06] MEDS: LOSARTAN POTASSIUM 50 MG TABLET (COZAAR) PO SCH (09:13)
[2017-06-06] MEDS: ATORVASTATIN 10 MG TABLET PO SCH (09:13)
[2017-06-06] MEDS: METOPROLOL TARTRATE 50 MG TABLET PO SCH (09:13)
[2017-06-06] MEDS: ENOXAPARIN SODIUM 40 MG/0.4 ML SYRINGE SUBCUT SCH (09:14)
--- NOTE | 2017-06-06 10:00 | NUR ---
Rounds Pt asleep. No signs of facial grimacing for pain or discomfort. No distress noted.
[2017-06-06] MEDS: LEVOFLOXACIN 500 MG/D5W 100 ML IV SCH (10:31)
[2017-06-06] MEDS: methylPREDNISolone SOD SUCC 40 MG/ML VIAL IVP SCH (10:32)
--- NOTE | 2017-06-06 11:00 | NUR ---
Physical Therapy Pt ambulating with therapist and complaints of pain with ambulation. Returned pt back to bed.
--- NOTE | 2017-06-06 11:20 | NUR ---
DISCHARGE PLANNING Samia from [facility] came to evaluate patient per MD request. Met with patient at bedside who was confused. Faxed SNF referral per request of [facility]. Milileisha will notify [facility] facility decision. Meanwhile; Called patient daughter Abraham Eric [phone] phone line busy. Will call again at later time. Addendum: 06/06/17 at 1521 by Leighann ACEVEDO Called patient son Shay [phone] spoke with his who stated Shay on his way to hospital to visit patient. Called [facility] left voice message requesting return call back with facility decision. Addendum: 06/06/17 at 1624 by Sammy Shelley RN >> Met pt's son at bedside to notify him that pt. will be transferring to [place], son said he knows and expecting the transfer as soon as nurse can send the pt. Addendum: 06/06/17 at 1703 by Leighann Sumner DP Patient assigned to room 14A at [place] RUCHI WOODS to report [phone]. PEGGY Pagan made aware. Called [facility] [phone] spoke with Mark valenzuela S transport roll picker 8pm. Placed transportation packet in nurses station.
[2017-06-06 12:04] VITALS: BP_SYST 155
[2017-06-06] MEDS: ALBUTEROL SULFATE 0.083% 2.5 MG/3 ML VIAL.NEB INH PRN (13:07)
[2017-06-06] MEDS: IPRATROPIUM BROM 0.5 MG/2.5 ML VIAL.NEB (ATROVENT) INH PRN (13:07)
--- NOTE | 2017-06-06 13:49 | NUR ---
PHYSICAL THERAPY CO-SIGN The Physical Therapy Progress Notes documented by Operations Research Manager have been reviewed. Reviewed/Co-Signed by: Natividad Claros PT Documentation Done by:Sera Hi PTA I CONCUR WITH THE DOCUMENTATION BY THE ABOVE TIRE CLASSIFIER Addendum: 06/06/17 at 1349 by Natividad Claros PT Amended: Links added.
--- NOTE | 2017-06-06 14:00 | NUR ---
Rounds Pt awake resting in bed with family at bedside. No significant changes noted. Incontinent care done. Repositioned and kept comfortable. Will monitor.
[2017-06-06 16:50] VITALS: BP_SYST 159
--- NOTE | 2017-06-06 17:18 | NUR ---
Rounds Pt asleep. No signs of facial grimacing for pain or discomfort. No distress noted. Repositioned and kept comfortable. Will monitor.
--- NOTE | 2017-06-06 18:29 | NUR ---
Clonidine Elevated blood pressure 161/81. Medicated with clonidine. Will monitor.
--- NOTE | 2017-06-06 18:45 | NUR ---
Closing notes Pt awake with no significant changes noted. Endorsed care to incoming nurse.
--- NOTE | 2017-06-06 19:00 | NUR ---
[facility] Report was called to [facility] and spoke with Jemima. Patient will be going to room 17A.
[2017-06-06 19:27] VITALS: BP_SYST 136
[2017-06-06] MEDS ORDERED: PREDNISONE 20 MG TABLET PO SCH (21:00)
--- NOTE | 2017-06-06 21:10 | NUR ---
Dsicharge Notes Transportation came to knot picker cloth the patient, gave transfer report. Patient on bed awake, alert with confusion and verbally responsive. On oxygen 2 L/min via nasal cannula with no sign of respiratory distress and no complain of pain noted. 2 EMT transferred patient onto the [facility] and left the hospital.
== END 2017-06-06 21:10 | DRG 189 ==
LOC: SED 12:01 → STU 14:18 → SMU 06-05 19:30
PROVIDERS: ADMIT Internal Medicine Hospice and Palliative Medicine; ATTEND Internal Medicine Hospice and Palliative Medicine
PROC: 5A09357 Assistance with Respiratory Ventilation, Less than 24 Consecutive Hours, Continuous Positive Airway Pressure (ICD-10-PCS; principal; 2017-06-03)
DX: J96.21 Acute and chronic respiratory failure with hypoxia (principal); J44.1 Chronic obstructive pulmonary disease with (acute) exacerbation; Z99.81 Dependence on supplemental oxygen; I10 Essential (primary) hypertension; E78.5 Hyperlipidemia, unspecified; F41.9 Anxiety disorder, unspecified; G89.29 Other chronic pain; I25.10 Atherosclerotic heart disease of native coronary artery without angina pectoris; R29.6 Repeated falls; Z87.891 Personal history of nicotine dependence; Z90.710 Acquired absence of both cervix and uterus
CPT/HCPCS: 36415; 36600; 71010; 80053; 81000-TC; 82803-TC; 83605; 83880; 84484; 85025; 85610-TC; 87040-TC; 87086; 93005; 94640; 94660; 94760; 96365; 96367; 96375; 97116-GP; 97530-GP; 99285; J1030; J1650; J1956; J2930; J3475; J7030; J7050